=== PATIENT | male | born 2005 | race Caucasian/White ===

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

== ENCOUNTER 2024-07-08 10:57 | Emergency (ER) | payer BC, SELFPAY ==
--- NOTE | 2024-07-08 11:04 | ED_ITS ---
HPI - Eye Problem General Chief complaint: Eye Problems Stated complaint: eye redness Time Seen by Provider: 07/08/24 11:04 Source: patient Mode of arrival: ambulatory Limitations: no limitations History of Present Illness HPI Narrative: Jose is a 19-year-old male patient presenting to the clinic today with complaints of bilateral eye redness and irritation. He reports his symptoms initially started with his left eye on Monday. Reports that the eye was itchy and draining. Has some yellow crusting around the eye at this time. Has tried allergy eyedrops without relief. No URI symptoms. No fevers. Denies any visual changes or blurry vision. Related Data Allergies Allergy/AdvReac Type Severity Reaction Status Date / Time No Known Allergies Allergy Verified 07/08/24 11:08 Review of Systems Review of Systems: Pertinent positives per HPI. Patient denies any fever, chills, rash, headache, visual changes, dizziness, cough, shortness of breath, chest pain, palpitations, nausea, vomiting, diarrhea, constipation, abdominal pain, or any urinary issues. PMFSH Social History Social History Smoking status: Never smoker Alcohol intake: never Substance use: never Comments At the time of my signature, I reviewed and agree with the nursing past medical, surgical, social, and family history. There is no relevant family history pertinent to the patient complaint. Exam Narrative: General: Well-developed, well nourished, in no apparent distress Head: Normocephalic, atraumatic Eyes: Pupils equally round and reactive to light bilaterally, EOM intact, bilateral sclera and conjunctive injected with yellow crusting, no discharge, lids mildly swollen Ears: TMs intact and clear, ear canals clear, no drainage, grossly hearing normal. Nose: Nares patent, no discharge, no inflammation, no sinus tenderness. Mouth: Oral pharynx without lesions or masses, good dentition, MMM. Neck: Supple, trachea midline, no enlargement of anterior or posterior cervical nodes, no thyroid masses or goiter palpable. Cardio: Regular rate and rhythm, s1 and s2 normal, no murmur appreciated. Resp: Clear to auscultation bilaterally, no rhonchi, rales, wheezing or rubs Course Course Emergency Course: Portions of this record may have been created with voice recognition software. Level of Care: Express Care Visit Vital Signs Vital signs: Vital signs reviewed MDM - Eye Problem MDM Narrative Medical decision making narrative: At the time of visit patient is resting comfortably on the exam table. Patient appears to be nontoxic. Plan: I suspect patient has bilateral conjunctivitis. Prescription for TobraDex was sent to the pharmacy. Supportive measures were discussed with the patient and they voiced understanding discharge instructions and agrees to treatment plan. Return precautions reviewed Differential Diagnosis Differential diagnosis: Likely corneal abrasion, conjunctivitis, acute iritis, hyphema, periorbital cellulitis, subconjunctival hemorrhage, glaucoma, corneal ulcer and ruptured globe Discharge Plan Discharge Clinical Impression: Conjunctivitis Qualifiers: Conjunctivitis type: acute Acute conjunctivitis type: unspecified Laterality: bilateral Qualified Code(s): H10.33 - Unspecified acute conjunctivitis, bilateral Patient Disposition: Home Condition: Stable Instructions: Antibiotic Form Additional Instructions: Conjunctivitis is considered contagious for 24 hours while on the antibiotic. Practice good hand washing techniques Avoid touching eyes Instill eyedrops as prescribed-Tobra dex May use warm moist washcloth to help remove eye discharge If eyes are matted shut-do not pry eyes open-use a warm moist cloth to loosen matting and wipe matter away from eye May take Tylenol/Motrin as needed for pain or fever May take Benadryl as needed for itching Follow-up with your PCP in 3-5 days if symptoms persist or sooner if they worsen Go to the emergency room if you develop any fever that is not controlled by Tylenol or Motrin, loss of vision, eye pain, increase eye swelling,visual changes, headache, confusion, lethargy, weakness, chest pain, or shortness of breath. Patient Language: Rwandan Prescriptions: New tobramycin-dexamethasone 0.3-0.1 % drops,suspension 1 drp EACH EYE QID 7 Days Qty: 10 0RF Follow-up/Referrals: PHYSICIAN,ULTRASOUND TECHNOLOGIST SONOGRAPHER [Primary Care Provider] - Stand Alone Forms: Work/School Release IP Time of Disposition: 11:17 Quality NIHSS Nursing Documentation ED NIHSS nursing documentation: reviewed/agree
[2024-07-08 11:08] VITALS: BP 112/70; PULSE 63; RESP 16; TEMP 36.8; O2SAT 100
--- OUTSIDE RECORDS SUMMARY | 2024-07-08 11:19 | XMS_ITS | Referral Summary ---
Author Organization [facility] Address [facility] [place] [address] Care Team Providers Care Supply And Distribution Manager Name Role Phone Yesenia Fernandez MD Primary Care Provider Sid Kaufman MD Unavailable [phone] Allergies No known active allergies Medications senna (SENOKOT) 8.6 mg tablet Take 1 tablet by mouth 2 (two) times a day 60 tablet 06/01/19 Active Additional Information Patient not taking.Reported on 07/14/2021 ondansetron ODT (ZOFRAN-ODT) 4 mg disintegrating tablet Take 1 tablet (4 mg total) by mouth every 8 (eight) hours as needed for nausea or vomiting 20 tablet 06/01/19 22 Active Additional Information Patient not taking.Reported on 07/14/2021 aspirin 81 mg chewable tabletIndications: prevention of thrombosis Take 1 tablet (81 mg total) by mouth 2 (two) times a day 60 tablet 06/01/19 22 Active Additional Information Patient not taking.Reported on 07/14/2021 oxyCODONE (ROXICODONE) 5 mg immediate release tabletIndications: Pain Take 1 tablet (5 mg total) by mouth every 4 (four) hours as needed for pain First line pain medication 20 tablet 06/01/19 22 Active Additional Information Patient not taking.Reported on 07/14/2021 HYDROcodone-acetam inophen (NORCO) 5-325 mg per tabletIndications: Pain Take 1-2 tablets by mouth every 4 (four) hours as needed for pain (ONLY if needed for pain once Oxycodone is finished.) 20 tablet 06/01/19 Active Additional Information Patient not taking.Reported on 07/14/2021 Active Problems Problem Noted Date Diagnosed Date Loose body of left knee 05/13/2021 Overview (05/13/2021): Added automatically from request for surgery [id number] Closed fracture of shaft of radius with ulna Immunizations Immunization Administration Dates Next Due Pfizer SARS-CoV-2 Monovalent Vaccination (12+ Yrs) PURPLE 05/26/2021,07/11/2020,06/13/2020 Social History Tobacco Use Types Packs/Day Years Used Date Smoking Tobacco: Never Assessed Sex and Gender Information Value Date Recorded Sex Assigned at Not on file 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 Gender Identity Male 05/31/2021 11:32 AM CDT Sexual Orientation Not on file Last Filed Vital Signs Vital Sign Reading Time Taken Comments Blood Pressure 121/77 05/31/2021 4:12 PM CDT Pulse 66 05/31/2021 4:47 PM CDT Temperature 36.3 C (97.3 F) 05/31/2021 4:12 PM CDT Respiratory Rate 16 05/31/2021 4:47 PM CDT Oxygen Saturation 100% 05/31/2021 4:12 PM CDT Inhaled Oxygen Concentration - - Weight 73.3 kg (161 lb 9.6 oz) 05/31/2021 11:38 AM CDT Height 172.5 cm (5' 7.91 ) 05/31/2021 11:38 AM C DT Body Mass Index 24.63 05/31/2021 11:38 AM CDT Plan of Treatment Not on file Medical Devices Explanted Type Area Patent Prosecution Attorney Device Identifier Shelf Expiration Date Model / Serial / Lot [employer] [id number] Negro .062in 6in Threaded [place] Both Ends Orthopedic - [id number] Explanted:Qty: 2 on 05/31/2021 at [facility] Left: Knee [employer] [id number] / / [employer] 1600-654 Negro Od.054 In L6 In 2 [place] Smooth Wire Fixation Stainless Steel Sterile - [id number] Explanted:Qty: 1 on 05/31/2021 at [facility] Left: Knee [employer] [id number] / / Insurance [facility] Address: [place] [address] [id number]ICE PLUS [facility] Address: [place] [address] [facility] Address[facility] [address] [place] [id number] [facility] Address: [address] [place] [address] Advance Directives For more information, please contact: [phone] Documents on File Type Date Recorded Patient Instructional Coordinator Expl anation ADVANCE DIRECTIVE 05/31/2021 11:23 AM Care Teams Supply And Distribution Manager Relationship Specialty Start Date End Date Yesenia Fernandez MD PCP - General Pediatrics 03/11/21 Sid Kaufman MD [address] [address] Surgeon Pediatric Orthopedic Surgery 05/31/21
--- OUTSIDE RECORDS SUMMARY | 2024-07-08 11:19 | XMS_ITS | Clinical Summary ---
Author Organization [facility] Address [facility] [place] [address] Care Team Providers Care Police Surgeon Name Role Phone Yesenia Fernandez MD Primary Care Provider Sid Kaufman MD Unavailable [phone] Allergies No known active allergies Medications senna [...] (05/13/2021): Added automatically from request for surgery [id number] Closed fracture of shaft of radius with ulna Immunizations Immunization Administration Dates Next Due Pfizer SARS-CoV-2 Monovalent Vaccination (12+ Yrs) PURPLE 05/26/2021,07/11/2020,06/13/2020 Family History Medical History Relation Name Comments Diabetes Father Relation Name Status Comments Father Social History Tobacco Use Types Packs/Day Years Used Date Smoking Tobacco: Never Assessed Sex and Gender Information Value Date Recorded Sex Assigned at Not on file 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 Gender Identity Male 05/31/2021 11:32 AM CDT Sexual Orientation Not on file Obstetrics History Last Filed Vital Signs Vital Sign Reading [...] 05/31/2021 11:38 AM CDT Plan of Treatment Health Maintenance Due Date Last Done Comments Depression Screening 2003 Hepatitis C Screening 2003 DTaP/Tdap/Td Vaccine (1 - Tdap) 05/08/2014 Varicella Vaccines (1 of 2 - 13+ 2-dose series) 05/08/2016 HPV Vaccines (1 - Male 3-dos e series) 05/08/2018 Meningococcal B Vaccine (1 o f 2 - Standard) 2019 Hepatitis B Screening 05/08/2021 Regular Well Visit/Exam 18-64 05/08/2021 Covid-19 Vaccine (2023-2 5 season) 2023 05/26/2021, 07/11/2020, 06/13/2020 Influenza Vaccine (Season Ended) 2024 Meningococcal Vaccine Aged Out No rea devyn eligible based on patient's age to complete this topic Pneumococcal vaccine <65 Aged Out No longer eligible based on patient's age to complete this topic Medical Devices Explanted Type Area Fruit Preserver Device Identifier Shelf Expiration Date Model / Serial / Lot [employer] [id number] Negro .062in 6in Threaded [place] Both [employer]ds Orthopedic - [id number] Explanted:Qty: 2 on 05/31/2021 at [facility] Left: Knee [employer] [id number] / / [employer] 1600-654 Negro Od.054 In L6 In 2 [place] Smooth Wire Fixation Stainless Steel Sterile - [id number] Explanted:Qty: 1 on 05/31/2021 at [facility] Left: Knee [employer] [id number] / / Insurance [facility] CHOICE PLUS [facility] CHOICE PLUS [employer] CHOICE PLUS Advance Directives For more information, please contact: [phone] Documents on File Type Date Recorded Patient Veterans Contact Representative Expl anation ADVANCE DIRECTIVE 05/31/2021 11:23 AM Care Teams Police Surgeon Relationship Specialty Start Date End Date Yesenia Fernandez MD PCP - General Pediatrics 03/11/21 Sid Kaufman MD [address] [address] Surgeon Pediatric Orthopedic Surgery 05/31/21
== END 2024-07-08 11:20 | disposition home or self-care (01) ==
PROVIDERS: Emergency Provider Nurse Practitioner Family; Referring Provider Emergency Medicine
DX: H10.33 Unspecified acute conjunctivitis, bilateral (principal)
CPT/HCPCS: 99213; G0463